=== PATIENT | female | born 2000 | race Caucasian/White ===

== ENCOUNTER 2020-04-18 09:45 | Inpatient (IN) ==
[2020-04-18] MEDS ORDERED: GI COCKTAIL ED USE PO ONE (11:35)
[2020-04-18] MEDS ORDERED: ONDANSETRON INJ 2 MG/ML 2 ML VIAL IV STA (11:35)
[2020-04-18] MEDS ORDERED: SODIUM CHLORIDE 0.9% 1000ML 1,000 ML IV ONE ×2 (11:35→12:44)
--- NOTE | 2020-04-18 11:41 | Emergency Department Note ---
History of Present Illness General Chief complaint: Illness Stated complaint: NAUSEA,FEVER,SHAKES;JUST NOT FEELING SELF Source: patient Mode of arrival: ambulatory Limitations: no limitations History of Present Illness Provider complaint: "I'm feeling really bad" Onset (ago): day(s) 4 Maximum Pain Intensity: 5 This 20-year-old female patient with significant past medical history of type 1 diabetes presents to the emergency department today, ambulatory, complaining of "I am feeling really bad". The patient states 4 days ago, she was hung over from drinking the night before. She states she then developed some heartburn and nausea, and yesterday she was extremely fatigued and nauseated. She has not been able to vomit. Today, she awoke with a headache noted her blood sugar was 586 upon awakening. The patient does admit that she did not take her normal 40 units of Lantus last night at bedtime. She has been unable to eat or drink normally. She did take 15 units of Humalog this morning upon awakening and noticing her sugar to be 586. Patient denies any further alcohol or drug use. She denies any specific abdominal pain. Last menstrual period is current. Last bowel movement was this morning. Patient denies any chest pain or dyspnea. There is no cough, congestion, runny nose, sore throat. Patient rates her discomfort a 5/10 and describes a burning sensation in her upper abdomen. Home Medications Home Medications Medication Instructions Recorded Confirmed Type Control 1 tab PO DAILY 04/18/20 04/18/20 History insulin lispro [Humalog KwikPen 20 unit SUBCUT DAILY 04/18/20 04/18/20 History Insulin] simvastatin 20 mg PO DAILY 04/18/20 04/18/20 History Allergies Allergy/AdvReac Type Severity Reaction Status Date / Time No Known Allergies Allergy Verified 04/18/20 11:11 Past Med/Surg History Medical History Diabetes, type I Hyperlipidemia Social History Feels Safe at Home: Yes Smoking Status: Never smoker Review of Systems A total of 10 systems reviewed and were otherwise negative Physical Exam Vital Signs Vital Signs - 24 hr 04/18/20 09:59 04/18/20 12:00 04/18/20 12:30 Temperature 36.6 C Temperature Source Oral Pulse Rate 120 H 93 H Pulse Rate [Finger] 91 H Pulse Rate from SpO2 Sensor 96 H Respiratory Rate 16 20 26 H Respiratory Effort / Characteristics Non-Labored Non-Labored Spontaneous Respiratory Depth Normal Normal Respiratory Pattern Blood Pressure 151/87 H 109/74 Blood Pressure [Right Arm] 111/78 Blood Pressure Mean 108 80 Blood Pressure Mean [Right Arm] 89 Pulse Oximetry 97 98 100 Oxygen Delivery Method Room Air Room Air Room Air Sepsis Recent Fever Within 48 Hours No Sepsis New/Unexplained Change in Mental Status No Sepsis Action Taken by Nursing No Action Required 04/18/20 12:38 04/18/20 12:40 04/18/20 12:50 Temperature Temperature Source Pulse Rate 96 H 100 H Pulse Rate [Finger] 96 H Pulse Rate from SpO2 Sensor 96 H 100 H Respiratory Rate 27 H 19 24 Respiratory Effort / Characteristics Non-Labored Spontaneous Respiratory Depth Normal Respiratory Pattern Regular Blood Pressure Blood Pressure [Right Arm] 109/74 Blood Pressure Mean Blood Pressure Mean [Right Arm] 85 Pulse Oximetry 100 100 100 Oxygen Delivery Method Room Air Room Air Room Air Sepsis Recent Fever Within 48 Hours Sepsis New/Unexplained Change in Mental Status Sepsis Action Taken by Nursing 04/18/20 13:00 04/18/20 13:01 04/18/20 13:10 Temperature Temperature Source Pulse Rate 96 H 95 H 98 H Pulse Rate [Finger] Pulse Rate from SpO2 Sensor 98 H 96 H 100 H Respiratory Rate 26 H 24 24 Respiratory Effort / Characteristics Respiratory Depth Respiratory Pattern Blood Pressure 111/72 Blood Pressure [Right Arm] Blood Pressure Mean 79 Blood Pressure Mean [Right Arm] Pulse Oximetry 100 100 100 Oxygen Delivery Method Room Air Room Air Room Air Sepsis Recent Fever Within 48 Hours Sepsis New/Unexplained Change in Mental Status Sepsis Action Taken by Nursing 04/18/20 13:20 04/18/20 13:30 04/18/20 13:31 Temperature Temperature Source Pulse Rate 96 H 96 H 93 H Pulse Rate [Finger] Pulse Rate from SpO2 Sensor 97 H 95 H 96 H Respiratory Rate 26 H 23 20 Respiratory Effort / Characteristics Respiratory Depth Respiratory Pattern Blood Pressure 112/68 Blood Pressure [Right Arm] Blood Pressure Mean 79 Blood Pressure Mean [Right Arm] Pulse Oximetry 100 100 100 Oxygen Delivery Method Room Air Room Air Room Air Sepsis Recent Fever Within 48 Hours Sepsis New/Unexplained Change in Mental Status Sepsis Action Taken by Nursing 04/18/20 13:40 04/18/20 13:50 04/18/20 14:00 Temperature Temperature Source Pulse Rate 100 H 96 H 94 H Pulse Rate [Finger] Pulse Rate from SpO2 Sensor 99 H Respiratory Rate 29 H 17 20 Respiratory Effort / Characteristics Respiratory Depth Respiratory Pattern Blood Pressure 119/84 Blood Pressure [Right Arm] Blood Pressure Mean 99 Blood Pressure Mean [Right Arm] Pulse Oximetry 100 Oxygen Delivery Method Room Air Room Air Room Air Sepsis Recent Fever Within 48 Hours Sepsis New/Unexplained Change in Mental Status Sepsis Action Taken by Nursing 04/18/20 14:01 04/18/20 14:10 04/18/20 14:20 Temperature Temperature Source Pulse Rate 92 H 96 H 94 H Pulse Rate [Finger] Pulse Rate from SpO2 Sensor Respiratory Rate 17 27 H 26 H Respiratory Effort / Characteristics Respiratory Depth Respiratory Pattern Blood Pressure Blood Pressure [Right Arm] Blood Pressure Mean Blood Pressure Mean [Right Arm] Pulse Oximetry Oxygen Delivery Method Room Air Room Air Room Air Sepsis Recent Fever Within 48 Hours Sepsis New/Unexplained Change in Mental Status Sepsis Action Taken by Nursing 04/18/20 14:30 04/18/20 14:31 04/18/20 14:40 Temperature Temperature Source Pulse Rate 99 H 96 H 95 H Pulse Rate [Finger] 93 H Pulse Rate from SpO2 Sensor Respiratory Rate 23 20 24 Respiratory Effort / Characteristics Non-Labored Spontaneous Respiratory Depth Normal Respiratory Pattern Regular Blood Pressure 117/82 Blood Pressure [Right Arm] 117/82 Blood Pressure Mean 89 Blood Pressure Mean [Right Arm] 93 Pulse Oximetry 99 Oxygen Delivery Method Room Air Room Air Room Air Sepsis Recent Fever Within 48 Hours Sepsis New/Unexplained Change in Mental Status Sepsis Action Taken by Nursing 04/18/20 14:50 04/18/20 15:00 04/18/20 15:01 Temperature Temperature Source Pulse Rate 96 H 100 H 100 H Pulse Rate [Finger] Pulse Rate from SpO2 Sensor Respiratory Rate 15 30 H 22 Respiratory Effort / Characteristics Respiratory Depth Respiratory Pattern Blood Pressure 108/68 Blood Pressure [Right Arm] Blood Pressure Mean 79 Blood Pressure Mean [Right Arm] Pulse Oximetry Oxygen Delivery Method Room Air Room Air Room Air Sepsis Recent Fever Within 48 Hours Sepsis New/Unexplained Change in Mental Status Sepsis Action Taken by Nursing 04/18/20 15:10 Temperature Temperature Source Pulse Rate 101 H Pulse Rate [Finger] Pulse Rate from SpO2 Sensor Respiratory Rate 26 H Respiratory Effort / Characteristics Respiratory Depth Respiratory Pattern Blood Pressure Blood Pressure [Right Arm] Blood Pressure Mean Blood Pressure Mean [Right Arm] Pulse Oximetry Oxygen Delivery Method Room Air Sepsis Recent Fever Within 48 Hours Sepsis New/Unexplained Change in Mental Status Sepsis Action Taken by Nursing VITALS: Vitals are noted on the nurse's note and reviewed by myself. Vital signs stable. GENERAL: This is a 20-year-old female, in no acute distress, nondiaphoretic, well-developed well-nourished. SKIN: The skin was without rashes, erythema, edema, or bruising. There is no tenting of the skin. Capillary refill less than 2 seconds. HEAD: Normocephalic atraumatic. EARS: External auditory canals clear, tympanic membranes pearly collier without erythema or effusion bilaterally. EYES: Pupils equal round and reactive to light and accommodation. Conjunctivae without injection, sclerae without icterus. NOSE: Patent, turbinates without inflammation or discharge. No sinus tenderness. MOUTH: Mucous membranes moist. Tonsils are not enlarged. Pharynx without erythema or exudate. Uvula midline. Airway patent. Tongue does not deviate. NECK: Supple without nuchal rigidity. No lymphadenopathy. No thyromegaly. Cervical spine is nontender. No JVD. HEART: Regular rate and rhythm without murmurs gallops or rubs. LUNGS: Clear to auscultation bilaterally without wheezes, rales or rhonchi. No retractions or accessory muscle use. ABDOMEN: Positive bowel sounds x 4. Normal tympanic percussion. Soft, nontende r, without masses or organomegaly. Marinelli sign negative. No guarding or rebound tenderness. No CVA tenderness bilaterally. MUSCULOSKELETAL: No muscle atrophy, erythema, or edema noted. Full range of motion without joint tenderness in all extremities. No tenderness to palpation. Normal gait. Strength 5/5 throughout. NEURO: Patient was alert and oriented to person place and time. No focal ne urological deficits. Course Course The patient was seen and evaluated as above. An order was placed for continuous cardiac monitoring. The monitor shows a sinus tachycardia at a rate of 120 bpm. IV access obtained, labs drawn. Patient medicated with IV fluids, Zofran, GI cocktail. Labs reviewed by myself. I discussed the findings with the patient at bedside. I discussed the case with my attending. I discussed case with the ED pharmacist. Patient medicated with second liter of IV fluids, cefepime, maintenance fluids of D5 and 1/2 NS with 20 mEq of potassium and insulin drip. I discussed the case with the global program manager. I discussed the case with the [facility] hospitalist physician, Dr. Delaney, who did agree to see and evaluate the patient for admission. Administered Medications Potassium Chloride/Dextrose/Sod Cl (D5w And 1/2nss + 20meq Kcl) 20 meq in 1,000 mls @ 125 mls/hr IV .Q8H ANAID Stop: 05/18/20 13:14 Last Admin: 04/18/20 14:39 Dose: 125 mls/hr Documented by: [id number] Discontinued Medications Al Hydrox/Mg Hydrox/Simethicone () 1 dose PO ONE ONE Stop: 04/18/20 11:36 Last Admin: 04/18/20 12:39 Dose: 1 dose Documented by: [id number] Sodium Chloride (Nss 1000ml) 1,000 mls @ 999 mls/hr IV .Q1H1M ONE Stop: 04/18/20 12:35 Last Infusion: 04/18/20 13:01 Dose: 0 mls/hr Documented by: [id number] Admin: 04/18/20 12:00 Dose: 999 mls/hr Documented by: [id number] Cefepime HCl (Maxipime) 2,000 mg in 20 mls @ 5 mls/min IV NOW STA; Protocol Stop: 04/18/20 12:46 Last Admin: 04/18/20 12:59 Dose: 5 mls/min Documented by: [id number] Sodium Chloride (Nss 1000ml) 1,000 mls @ 999 mls/hr IV .Q1H1M ONE Stop: 04/18/20 13:44 Last Infusion: 04/18/20 14:08 Dose: 0 mls/hr Documented by: [id number] Admin: 04/18/20 12:59 Dose: 999 mls/hr Documented by: [id number] Ondansetron HCl (Zofran) 4 mg IV NOW STA Stop: 04/18/20 11:36 Last Admin: 04/18/20 12:39 Dose: 4 mg Documented by: [id number] Medical Decision Making Differential Diagnosis DKA, HHS, sepsis, pancreatitis, infection, malignancy, among others Home Medications Current Medication List: was personally reviewed by me Laboratory Data Attestation: I reviewed the patient's lab results. No leukocytosis, anemia, thrombocytopenia. Renal and hepatic function without significant abnormality. Glucose 178 at present. Hemoglobin A1c elevated 9.1. Lactic acid 5.3. Urinalysis positive for 4+ ketones, 3+ glucose. No evidence of infection. Urine test negative. Repeat lactate 1.1. Anion gap 17. Result diagrams: 04/18/20 11:46 04/18/20 11:46 Lab Results 04/18/20 04/18/20 04/18/20 Range/Units 11:46 11:46 11:46 WBC 9.66 (4.8-10.8) K/uL RBC 4.86 (4.2-5.4) M/uL Hgb 15.3 (12.0-16.0) g/dL Hct 44.8 (37-47) % MCV 92.2 (80-100) fL MCH 31.5 (25-34) pg MCHC 34.2 (32-36) g/dL RDW Std Deviation 45.0 (36.4-46.3) fL RDW Coeff of Doreen 13.4 (11.5-14.5) % Plt Count 509 H (130-400) K/uL MPV 9.6 (7.4-10.4) fL Immature Gran % (Auto) 0.3 % Neut % (Auto) 77.1 % Lymph % (Auto) 18.3 % [place] % (Auto) 3.7 % Eos % (Auto) 0.4 % Baso % (Auto) 0.2 % Neut # (Auto) 7.44 H (1.4-6.5) K/uL Lymph # (Auto) 1.77 (1.2-3.4) K/uL [place] # (Auto) 0.36 (0.11-0.59) K/uL Eos # (Auto) 0.04 (0-0.5) K/uL Baso # (Auto) 0.02 (0-0.2) K/uL Immature Gran # (Auto) 0.03 H (0.00-0.02) K/uL ABG pH (7.35-7.45) ABG pCO2 (35-46) mmHg ABG pO2 (80-95) mmHg ABG HCO3 (19-24) mmol/L ABG O2 Saturation (90-95) % ABG Base Excess (-9-1.8) mEq/L Jc Test (Pos) Barometric Pressure mm/Hg Oxygen Given Sodium 136 (136-145) mmol/L Potassium 3.5 (3.5-5.1) mmol/L Chloride 106 (98-107) mmol/L Carbon Dioxide 13 L (21-32) mmol/L Anion Gap 17.0 H (3-11) BUN 6 L (7-18) mg/dl Creatinine 1.19 (0.6-1.2) mg/dl Est Cr Clr Drug Dosing 69.1 ml/min Est GFR ( Amer) 75.0 Est GFR (Non-Af Amer) 64.8 BUN/Creatinine Ratio 5.3 L (10-20) Glucose 178 H (70-99) mg/dl POC Glucose (70-99) mg/dl Estimat Average Glucose 214 mg/dl Hemoglobin A1c 9.1 H (4.5-5.6) % Lactate (0.4-2.0) mmol/L Calcium 10.9 H (8.5-10.1) mg/dl Phosphorus 1.5 L* (2.5-4.9) mg/dl Magnesium 1.7 L (1.8-2.4) mg/dl Total Bilirubin 0.6 (0.2-1) mg/dl AST 21 (15-37) U/L ALT 28 (12-78) U/L Alkaline Phosphatase 206 H (45-117) U/L Total Protein 9.1 H (6.4-8.2) gm/dl Albumin 3.8 (3.4-5.0) gm/dl Globulin 5.3 H (2.5-4.0) gm/dl Albumin/Globulin Ratio 0.7 L (0.9-2) Beta-Hydroxybutyric Acd 30.96 H (0.2-2.81) mg/dl Urine Color Urine Appearance (Clear) Urine pH (4.5-7.5) Ur Specific [place] (1.000-1.030) Urine Protein (Negative) Urine Glucose (UA) (Negative) Urine Ketones (Negative) Urine Blood (Negative) Urine Nitrite (Negative) Urine Bilirubin (Negative) Urine Urobilinogen (Negative) Ur Leukocyte Esterase (Negative) Urine WBC (Auto) (0-5) /hpf Urine RBC (Auto) (0-4) /hpf U Hyaline Cast (Auto) (0-5) /lpf U Epithel Cells (Auto) (0-5) /lpf Urine Bacteria (Auto) (Negative) POC Ur Test (NEG) 04/18/20 04/18/20 04/18/20 Range/Units 11:46 12:30 12:30 WBC (4.8-10.8) K/uL RBC (4.2-5.4) M/uL Hgb (12.0-16.0) g/dL Hct (37-47) % MCV (80-100) fL MCH (25-34) pg MCHC (32-36) g/dL RDW Std Deviation (36.4-46.3) fL RDW Coeff of Doreen (11.5-14.5) % Plt Count (130-400) K/uL MPV (7.4-10.4) fL Immature Gran % (Auto) % Neut % (Auto) % Lymph % (Auto) % [place] % (Auto) % Eos % (Auto) % Baso % (Auto) % Neut # (Auto) (1.4-6.5) K/uL Lymph # (Auto) (1.2-3.4) K/uL [place] # (Auto) (0.11-0.59) K/uL Eos # (Auto) (0-0.5) K/uL Baso # (Auto) (0-0.2) K/uL Immature Gran # (Auto) (0.00-0.02) K/uL ABG pH (7.35-7.45) ABG pCO2 (35-46) mmHg ABG pO2 (80-95) mmHg ABG HCO3 (19-24) mmol/L ABG O2 Saturation (90-95) % ABG Base Excess (-9-1.8) mEq/L Jc Test (Pos) Barometric Pressure mm/Hg Oxygen Given Sodium (136-145) mmol/L Potassium (3.5-5.1) mmol/L Chloride (98-107) mmol/L Carbon Dioxide (21-32) mmol/L Anion Gap (3-11) BUN (7-18) mg/dl Creatinine (0.6-1.2) mg/dl Est Cr Clr Drug Dosing ml/min Est GFR ( Amer) Est GFR (Non-Af Amer) BUN/Creatinine Ratio (10-20) Glucose (70-99) mg/dl POC Glucose (70-99) mg/dl Estimat Average Glucose mg/dl Hemoglobin A1c (4.5-5.6) % Lactate 5.3 H* (0.4-2.0) mmol/L Calcium (8.5-10.1) mg/dl Phosphorus (2.5-4.9) mg/dl Magnesium (1.8-2.4) mg/dl Total Bilirubin (0.2-1) mg/dl AST (15-37) U/L ALT (12-78) U/L Alkaline Phosphatase (45-117) U/L Total Protein (6.4-8.2) gm/dl Albumin (3.4-5.0) gm/dl Globulin (2.5-4.0) gm/dl Albumin/Globulin Ratio (0.9-2) Beta-Hydroxybutyric Acd (0.2-2.81) mg/dl Urine Color Yellow Urine Appearance Clear (Clear) Urine pH 5.0 (4.5-7.5) Ur Specific [place] 1.027 (1.000-1.030) Urine Protein Trace H (Negative) Urine Glucose (UA) 3+ H (Negative) Urine Ketones 4+ H (Negative) Urine Blood Negative (Negative) Urine Nitrite Negative (Negative) Urine Bilirubin Negative (Negative) Urine Urobilinogen Negative (Negative) Ur Leukocyte Esterase Negative (Negative) Urine WBC (Auto) 1-5 (0-5) /hpf Urine RBC (Auto) 0-4 (0-4) /hpf U Hyaline Cast (Auto) 1-5 (0-5) /lpf U Epithel Cells (Auto) 5-10 H (0-5) /lpf Urine Bacteria (Auto) Negative (Negative) POC Ur Test NEG (NEG) 04/18/20 04/18/20 04/18/20 Range/Units 14:08 14:08 14:12 WBC (4.8-10.8) K/uL RBC (4.2-5.4) M/uL Hgb (12.0-16.0) g/dL Hct (37-47) % MCV (80-100) fL MCH (25-34) pg MCHC (32-36) g/dL RDW Std Deviation (36.4-46.3) fL RDW Coeff of Doreen (11.5-14.5) % Plt Count (130-400) K/uL MPV (7.4-10.4) fL Immature Gran % (Auto) % Neut % (Auto) % Lymph % (Auto) % [place] % (Auto) % Eos % (Auto) % Baso % (Auto) % Neut # (Auto) (1.4-6.5) K/uL Lymph # (Auto) (1.2-3.4) K/uL [place] # (Auto) (0.11-0.59) K/uL Eos # (Auto) (0-0.5) K/uL Baso # (Auto) (0-0.2) K/uL Immature Gran # (Auto) (0.00-0.02) K/uL ABG pH 7.38 (7.35-7.45) ABG pCO2 26 L (35-46) mmHg ABG pO2 126 H (80-95) mmHg ABG HCO3 15 L (19-24) mmol/L ABG O2 Saturation 98.7 H (90-95) % ABG Base Excess -8.4 (-9-1.8) mEq/L Jc Test Pos (Pos) Barometric Pressure 729.8 mm/Hg Oxygen Given Room Air Sodium (136-145) mmol/L Potassium (3.5-5.1) mmol/L Chloride (98-107) mmol/L Carbon Dioxide (21-32) mmol/L Anion Gap (3-11) BUN (7-18) mg/dl Creatinine (0.6-1.2) mg/dl Est Cr Clr Drug Dosing ml/min Est GFR ( Amer) Est GFR (Non-Af Amer) BUN/Creatinine Ratio (10-20) Glucose (70-99) mg/dl POC Glucose 81 (70-99) mg/dl Estimat Average Glucose mg/dl Hemoglobin A1c (4.5-5.6) % Lactate 1.1 (0.4-2.0) mmol/L Calcium (8.5-10.1) mg/dl Phosphorus (2.5-4.9) mg/dl Magnesium (1.8-2.4) mg/dl Total Bilirubin (0.2-1) mg/dl AST (15-37) U/L ALT (12-78) U/L Alkaline Phosphatase (45-117) U/L Total Protein (6.4-8.2) gm/dl Albumin (3.4-5.0) gm/dl Globulin (2.5-4.0) gm/dl Albumin/Globulin Ratio (0.9-2) Beta-Hydroxybutyric Acd (0.2-2.81) mg/dl Urine Color Urine Appearance (Clear) Urine pH (4.5-7.5) Ur Specific [place] (1.000-1.030) Urine Protein (Negative) Urine Glucose (UA) (Negative) Urine Ketones (Negative) Urine Blood (Negative) Urine Nitrite (Negative) Urine Bilirubin (Negative) Urine Urobilinogen (Negative) Ur Leukocyte Esterase (Negative) Urine WBC (Auto) (0-5) /hpf Urine RBC (Auto) (0-4) /hpf U Hyaline Cast (Auto) (0-5) /lpf U Epithel Cells (Auto) (0-5) /lpf Urine Bacteria (Auto) (Negative) POC Ur Test (NEG) Imaging Data Radiologist's Impression: XR chest 1V portable CLINICAL HISTORY: fever dyspnea COMPARISON STUDY: No previous studies for comparison. FINDINGS: The bones soft tissues and hemidiaphragms are normal. The cardiomediastinal silhouette is normal. The lungs are clear. The pulmonary vasculature is normal. IMPRESSION: Negative chest. ACT 112: Negative or not required by law. The above report was generated using voice recognition software. It may contain grammatical, syntax or spelling errors. Electronically signed by: Won Matthews M.D. 04/18/2020 1:06 PM Blood Pressure Blood Pressure Findings: Normal blood pressure MDM Narrative This 20-year-old female patient presents emergency department today for josephine luation of generalized feeling of unwellness. The patient is a type I diabetic who has not been properly managing her blood sugars. She has been ill for the past 3 to 4 days, complaining of heartburn and epigastric pain, nausea without vomiting, blood sugar this morning upon awakening was 586. The patient did give herself 15 units of Humalog prior to arrival in the emergency department. While here in the department, she was found to have a mildly elevated blood sugar of 178. I feel that the Humalog she was given prior to arrival in the ED helped to decrease the blood sugar prior to her arrival in the ED. The patient is likely experiencing an acute DKA with the elevated anion gap of 17, elevated blood sugar, tachycardia. Her symptoms here in the ED did significantly improve with IV hydration, Zofran, and GI cocktail. She was empirically started on cefepime due to the elevated lactic acid and blood cultures are pending. The patient will be admitted to the hospitalist service for ongoing management care of her condition. Please see hospitalist dictation. The chart was completed utilizing [employer] voice recognition software. Grammatical errors, random word insertions, pronoun errors, and incomplete sentences are an occasional consequence of this system due to software limitations, ambient noise, and hardware issues. Any formal questions or concerns about the content, text, or information contained within the body of this dictation should be directly addressed to the provider for clarification. Impression & Plan DKA (diabetic ketoacidoses), Tachycardia, Nausea Discharge Plan Visit Data Chief Complaint: Illness Stated Complaint: NAUSEA,FEVER,SHAKES;JUST NOT FEELING SELF ED Provider: Shabbir Conner ED Midlevel Provider: Lu Ashley Discharge Problem: DKA (diabetic ketoacidoses), Tachycardia, Nausea Patient Disposition: Admitted As Inpatient Condition: Good Forms Stand Alone Forms: My [facility] [employer] Prescriptions Prescriptions: No Action insulin lispro [Humalog KwikPen Insulin] 100 unit/mL Insulin Pen 20 unit SUBCUT DAILY RF: 0 Control 1 tab PO DAILY RF: 0 simvastatin 20 mg Tablet 20 mg PO DAILY RF: 0 Referrals Referrals: PCP,NO [Primary Care Provider] -
[2020-04-18 12:18] LABS: Basophils # (auto) 0.02 K/uL (0-0.2); Basophils % (auto) 0.2 %; Eosinophils # (auto) 0.04 K/uL (0-0.5); Eosinophils % (auto) 0.4 %; Hematocrit (blood only) 44.8 % (37-47); Hemoglobin 15.3 g/dL (12.0-16.0); Immature Granulocytes # (auto) 0.03 K/uL (0.00-0.02); Immature Granulocytes % (auto) 0.3 %; Lymphocytes # (auto) 1.77 K/uL (1.2-3.4); Lymphocytes % (auto) 18.3 %; Mean Corpuscular Hemoglobin 31.5 pg (25-34); Mean Corpuscular Hgb Conc 34.2 g/dL (32-36); Mean Corpuscular Volume 92.2 fL (80-100); Mean Platelet Volume 9.6 fL (7.4-10.4); Monocytes # (auto) 0.36 K/uL (0.11-0.59); Monocytes % (auto) 3.7 %; Neutrophils # (auto) 7.44 K/uL (1.4-6.5); Neutrophils % (auto) 77.1 %; Platelet Count 509 K/uL (130-400); RDW Coefficient of Variation 13.4 % (11.5-14.5); Red Blood Count 4.86 M/uL (4.2-5.4); White Blood Count 9.66 K/uL (4.8-10.8)
[2020-04-18 12:36] LABS: Albumin Level 3.8 gm/dl (3.4-5.0); BUN Creatinine Ratio 5.3 (10-20); Calcium 10.9 mg/dl (8.5-10.1); Creatinine Clr Calc Pharmacy 69.1 ml/min; Est GFR (Non-African American) 64.8; Magnesium 1.7 mg/dl (1.8-2.4); Potassium 3.5 mmol/L (3.5-5.1)
[2020-04-18] MEDS ORDERED: CEFEPIME 2,000 MG/20 ML VIAL IV STA (12:43)
[2020-04-18 12:51] LABS: Estimated Average Glucose 214 mg/dl; Hemoglobin A1C 9.1 % (4.5-5.6)
[2020-04-18 12:57] LABS: Albumin Globulin Ratio 0.7 (0.9-2); Beta-Hydroxybutyrate 30.96 mg/dl (0.2-2.81); Bilirubin,Total 0.6 mg/dl (0.2-1); Globulin 5.3 gm/dl (2.5-4.0); Phosphorus 1.5 mg/dl (2.5-4.9); Total Protein 9.1 gm/dl (6.4-8.2)
[2020-04-18 13:03] LABS: Appearance Urine Clear (Clear); Bacteria Urine Automated Negative (Negative); Bilirubin Urine Negative (Negative); Blood Urine Negative (Negative); Color Urine Yellow; Glucose Urine UA 3+ (Negative); Ketones Urine 4+ (Negative); Leukocyte Esterase Urine Negative (Negative); Nitrite Urine Negative (Negative); Protein Urine Trace (Negative); RBC Urine Automated 0-4 /hpf (0-4); Specific Gravity Urine 1.027 (1.000-1.030); Urobilinogen Urine Negative (Negative)
[2020-04-18] MEDS ORDERED: GLUCOSE 10 TABS/TUBE PO PRN (13:07)
[2020-04-18] MEDS ORDERED: GLUCOSE 40% GEL 15 GM TUBE PO PRN (13:07)
[2020-04-18] MEDS ORDERED: GLUCAGON FOR INJ 1 MG VIAL SQ PRN (13:07)
[2020-04-18] MEDS ORDERED: ED DKA INSULIN DRIP ONE (13:07)
[2020-04-18] MEDS ORDERED: CARBOHYDRATES FOR HYPOGLYCEMIA PO PRN (13:07)
[2020-04-18] MEDS ORDERED: DEXTROSE 50% 50 ML SYRINGE IV PRN (13:07)
--- NOTE | 2020-04-18 13:08 | XRay Report ---
XR chest 1V portable CLINICAL HISTORY: fever dyspnea COMPARISON STUDY: No previous studies for comparison. FINDINGS: The bones soft tissues and hemidiaphragms are normal. The cardiomediastinal silhouette is n ormal. The lungs are clear. The pulmonary vasculature is normal. IMPRESSION: Negative chest. ACT 112: Negative or not required by law. The above report was generated using voice recognition software. It may contain grammatical, syntax or spelling errors. Electronically signed by: Won Matthews M.D. 04/18/2020 1:06 PM
[2020-04-18] MEDS ORDERED: INSULIN REGULAR 250 UNITS in SODIUM CHLORIDE 0.9% 247.5 ML IV SCH ×2 (13:15→16:17)
--- NOTE | 2020-04-18 13:32 | History & Physical Report ---
Date of Service April 18, 2020 Assessment & Plan (1) DKA (diabetic ketoacidoses): Patient presents with diabetic ketoacidosis having reduce her glucose by self administration of short acting insulin prior to coming in. The patient does have an anion gap of 17 and a bicarb of 13 hypophosphatemia hypomagnesemia. She is elevated beta hydroxybutyric acid and also elevated lactic acid In the emergency department the treating provider did switch her to D5 with potassium which will be maintained upstairs she is on an insulin drip with glycemic management pharmacy consult. Typically she takes short acting insulin with a goal range of 90-1 30 with a correction factor of 30 and a carb ratio 1: 6. She typically takes 4 units of Lantus at night. Although being a type I diabetic for some time she states she does not recall being in DKA since age 9 she was informed that her hemoglobin A1c was elevated at 9.1 and she should consider reevaluation of her regiment hypomagnesemia this will be repleted We will follow her hypophosphatemia and replete if needed Patient is graduating senior from [employer] has a job interview on 04/19 by telephone interview at 1530 hrs. she is hopeful we can turn this around and will have the help of our glycemic pharmacist who I did call to see if we can resume her basal bolus in the morning if her anion gap and laboratory abnormalities are replete History of Present Illness Primary Care Provider: NO PCP This 20-year-old female patient with significant past medical history of type 1 diabetes presents in DKA but did self administer short acting insulin prior to arrival to bring her glucose down, she still has a depressed bicarb, widened anion gap and Beta hydroxy butarate that is elevated, . The patient states 4 days ago, she was drinking to the point where she did vomit and has felt poorly since that time. She attempted to self hydrate but did continue to feel fatigued and weak at times feeling short of breath and extreme fatigue. She states she then developed some heartburn and nausea, 1 day prior to presentation because of the nausea she did not take her long-acting insulin (40 units of Lantus at bedtime). Today, she awoke with a headache noted her blood sugar was 586 upon awakening. She did take 15 units of Humalog. The patient's sliding scale insulin is usually goal range of 90-1 30 correction factor 30 carb ratio 1:6. She denies any specific abdominal pain. Last menstrual period is current. Last bowel movement was this morning. Patient denies any chest pain or dyspnea. There is no cough, congestion, runny nose, sore throat. Patient had COVID screening questions and were negative. 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 Allergies Allergy/AdvReac Type Severity Reaction Status Date / Time No Known Allergies Allergy Verified 04/18/20 11:11 Home Medications Home Medications Medication Instructions Recorded Confirmed Type Control 1 tab PO DAILY 04/18/20 04/18/20 History insulin lispro [Humalog KwikPen 20 unit SUBCUT DAILY 04/18/20 04/18/20 History Insulin] simvastatin 20 mg PO DAILY 04/18/20 04/18/20 History Past Med/Surg History Medical History Diabetes, type I Hyperlipidemia Social History Feels Safe at Home: Yes Smoking Status: Never smoker Review of Systems Review of Systems: Mild to moderate distress and moderate fatigue no headache, blurry or double vision no speech or swallowing issues no chest pain, pressure or palpitations Mona complained of feeling shortness of breath but since resolved, no cough or wheezes no abdominal pain, did complain of having some mild nausea & vomiting, but no diarrhea or constipation no dysuria, hematuria or frequency no focal joint pain or swelling no back pain, CVA tenderness or radicular pain no bruising, bleeding or rashes no focal signs of weakness or numbness or altered sensation no complaints or anxiety or depression. Physical Exam Physical Exam: The patient appeared well nourished and normally developed. Vital signs as documented. Head exam is normocephalic atraumatic no scleral icterus Neck is without JVD, thyromegaly, or carotid bruits. Lungs are clear to auscultation, no focal loss of breath sounds Cardiac exam, Rhythm is regular.. No murmurs, rubs or gallops. Abdominal exam reveals normal bowel sounds, soft non tender, no masses Extremities are nonedematous and both pedal pulses are normal. Neurologic exam is alert and oriented, no focal loss of strength or sensation Skin is without bruises or rashes Psychologically is without concerns for anxiety or depression Results & Data Results & Data ([facility]) Vital Signs (Past 12 Hours) Vital Signs Temp Pulse Pulse Resp BP BP Pulse Ox 04/18/20 12:38 96 H 27 H 109/74 100 04/18/20 12:00 91 H 20 111/78 98 04/18/20 09:59 97.9 F 120 H 16 151/87 H 97 PG Care Time/CCT Total # of Minutes Spent Total Time Spent with Patient: Total time spent is greater than 50% in c oordination of care (as documented) at patient's floor/unit and/or counseling patient: Coding Level of Care Code 56897 Initial Inpt Care Lvl 3 Diagnoses DKA (diabetic ketoacidoses) E11.10
[2020-04-18 14:22] LABS: Base Excess ABG -8.4 mEq/L (-9-1.8); HCO3 ABG 15 mmol/L (19-24); Oxygen Saturation ABG 98.7 % (90-95); PCO2 ABG 26 mmHg (35-46); PO2 ABG 126 mmHg (80-95); pH ABG 7.38 (7.35-7.45)
[2020-04-18 14:33] LABS: Allen Test Pos (Pos)
[2020-04-18] MEDS: D5W AND 1/2NSS + 20MEQ KCL 20 MEQ/1,000 ML BAG IV SCH (14:39)
[2020-04-18] MEDS ORDERED: DC ALL PREVIOUSLY ORDERED DIABETES MEDS ONE (16:17)
[2020-04-18] MEDS ORDERED: ONDANSETRON INJ 2 MG/ML 2 ML VIAL IV PRN (16:17)
[2020-04-18] MEDS ORDERED: ACETAMINOPHEN 325 MG TAB PO PRN (16:17)
[2020-04-18] MEDS ORDERED: DKA GOAL RANGE 150-250 mg/dl ONE (16:17)
[2020-04-18] MEDS ORDERED: ALUMINUM/MAGNESIUM SUSP 30 ML UDC PO PRN (16:17)
[2020-04-18] MEDS ORDERED: PHARMACY GLYCEMIC MGMT CONSULT PRN (16:23)
[2020-04-18] MEDS ORDERED: MAGNESIUM SULFATE / D5W 1 GM/100 ML BAG IV ONE (17:00)
[2020-04-18 17:08] LABS: BUN Creatinine Ratio 7.4 (10-20); Calcium 8.6 mg/dl (8.5-10.1); Creatinine Clr Calc Pharmacy 123.9 ml/min; Est GFR (African American) 145.3; Est GFR (Non-African American) 125.4; Magnesium 1.6 mg/dl (1.8-2.4); Phosphorus 1.7 mg/dl (2.5-4.9); Potassium 3.3 mmol/L (3.5-5.1)
[2020-04-18] MEDS: INSULIN ASPART 100 UNITS/ML 3 ML PEN SC SCH ×2 (17:28→22:18)
[2020-04-18 20:33] LABS: BUN Creatinine Ratio 5.1 (10-20); Calcium 7.9 mg/dl (8.5-10.1); Creatinine Clr Calc Pharmacy 85.2 ml/min; Est GFR (African American) 97.3; Est GFR (Non-African American) 83.9; Magnesium 1.9 mg/dl (1.8-2.4); Phosphorus 1.9 mg/dl (2.5-4.9); Potassium 3.5 mmol/L (3.5-5.1)
[2020-04-19 00:47] LABS: BUN Creatinine Ratio 6.9 (10-20); Calcium 7.9 mg/dl (8.5-10.1); Creatinine Clr Calc Pharmacy 110.5 ml/min; Est GFR (African American) 133.3; Magnesium 1.8 mg/dl (1.8-2.4); Potassium 3.5 mmol/L (3.5-5.1)
[2020-04-19 00:59] LABS: Phosphorus 1.5 mg/dl (2.5-4.9)
[2020-04-19] MEDS: D5W AND 1/2NSS + 20MEQ KCL 20 MEQ/1,000 ML BAG IV SCH ×2 (01:21→09:00)
[2020-04-19 04:51] LABS: BUN Creatinine Ratio 6.3 (10-20); Calcium 7.6 mg/dl (8.5-10.1); Creatinine Clr Calc Pharmacy 113.5 ml/min; Est GFR (African American) 137.8; Est GFR (Non-African American) 118.9; Magnesium 1.8 mg/dl (1.8-2.4); Potassium 3.5 mmol/L (3.5-5.1)
[2020-04-19 05:00] LABS: Phosphorus 2.2 mg/dl (2.5-4.9)
[2020-04-19 09:00] LABS: BUN Creatinine Ratio 5.8 (10-20); Calcium 8.5 mg/dl (8.5-10.1); Creatinine Clr Calc Pharmacy 127.8 ml/min; Est GFR (African American) 146.8; Est GFR (Non-African American) 126.7; Magnesium 1.8 mg/dl (1.8-2.4); Potassium 3.3 mmol/L (3.5-5.1)
[2020-04-19] MEDS ORDERED: INSULIN GLARGINE SOLOSTAR 100 UNITS/ML 3 ML PEN SC ONE (09:00)
[2020-04-19] MEDS: INSULIN ASPART 100 UNITS/ML 3 ML PEN SC SCH ×4 (09:01→20:49)
[2020-04-19] MEDS: SIMVASTATIN 20 MG TAB PO SCH (09:03)
[2020-04-19] MEDS: POT PHOSPHATE MONOBASIC W/ SOD TAB PO SCH ×4 (09:10→20:44)
[2020-04-19 09:11] LABS: Phosphorus 2.1 mg/dl (2.5-4.9); Thyroid Stimulating Hormone 1.48 uIu/ml (0.300-4.500)
[2020-04-19 13:01] LABS: BUN Creatinine Ratio 6.9 (10-20); Blood Urea Nitrogen 4 mg/dl (7-18); Calcium 8.3 mg/dl (8.5-10.1); Carbon Dioxide 22 mmol/L (21-32); Chloride 113 mmol/L (98-107); Creatinine Clr Calc Pharmacy 151.5 ml/min; Est GFR (African American) > 150.0; Est GFR (Non-African American) 133.9; Glucose 97 mg/dl (70-99); Magnesium 1.9 mg/dl (1.8-2.4); Phosphorus 1.9 mg/dl (2.5-4.9); Potassium 3.4 mmol/L (3.5-5.1); Sodium 143 mmol/L (136-145)
--- NOTE | 2020-04-19 14:50 | Pharmacy Report ---
Glycemic Control Consultation - Date of Service April 19, 2020 - Scope Scope: Glycemic Pharmacist consulted for glycemic control and to write orders per [facility] inpatient glycemic control protocol. - Objective Weight: 68.2 kg Accuchecks BSG (last 24hrs): 04/18/20 04/18/20 04/18/20 16:26 16:42 17:34 Glucose 75 POC Glucose 71 190 H 04/18/20 04/18/20 04/18/20 19:00 20:01 20:02 Glucose 186 H POC Glucose 253 H 192 H 04/18/20 04/18/20 04/18/20 21:02 21:58 23:06 Glucose POC Glucose 179 H 198 H 152 H 04/18/20 04/19/20 04/19/20 23:57 00:18 01:03 Glucose 209 H POC Glucose 179 H 194 H 04/19/20 04/19/20 04/19/20 02:58 04:21 05:04 Glucose 158 H POC Glucose 171 H 153 H 04/19/20 04/19/20 04/19/20 07:07 08:10 11:28 Glucose 168 H POC Glucose 164 H 72 04/19/20 12:24 Glucose 97 POC Glucose Laboratory Data (last 24hrs): 04/18/20 04/18/20 04/19/20 16:26 20:02 00:18 Potassium 3.3 L 3.5 3.5 Carbon Dioxide 16 L 16 L 21 Anion Gap 13.0 H 13.0 H 7.0 Creatinine 0.66 D 0.96 D 0.74 Est Cr Clr Drug Dosing 123.9 85.2 110.5 04/19/20 04/19/20 04/19/20 04:21 08:10 12:24 Potassium 3.5 3.3 L 3.4 L Carbon Dioxide 21 19 L 22 Anion Gap 6.0 9.0 8.0 Creatinine 0.72 0.64 0.54 L Est Cr Clr Drug Dosing 113.5 127.8 151.5 HbA1c: Hemoglobin A1c 9.1 % (4.5-5.6) H 04/18/20 11:46 - Recent Pertinent Medications Outpatient Anti-diabetic Regimen: * Lantus 40 units hs, novolog ssi 90-130 CF of 30 CR of 1:6 * A1c = 9.1 % 04/18/20 Risk Factors for Insulin Resistance: * Diet: yes - Assessment & Plan Assessment & Plan: ASSESSMENT: * Patient admitted with DKA and started on insulin drip on admission. Continues on insulin drip this AM - running at 1.3 units/hr * Patient had forgotten to take evening dose of basal insulin 04/17 pm and BSGs yesterday AM were in the 500s * AM labs w/in range - anion gap closed / plan to transition off insulin drip - ordered home basal insulin for this AM * Insulin drip dc'ed later this AM - started novolog ssi PLAN FOR INPATIENT GLYCEMIC CONTROL: * Basal insulin * Lantus 40 x 1 this morning * Bolus insulin * NovoLog per scale ACHS or Q6hrs while NPO * Goal Range: Low 110 mg/dL - High 140 mg/dL * Correction Factor: 30 mg/dL/unit * Nutritional / Prandial insulin per carb ratio of 1 unit per 9 grams CHO consumed * Please note that the plan above was derived based on current level of insulin resistance and hospital stress. These recommendations are appropriate for inpatient admission only. Plan of care upon discharge will need to be reassessed to avoid potential outpatient hypo/hyperglycemia. Thank you.
[2020-04-19] MEDS ORDERED: POTASSIUM CHLORIDE 20 MEQ TABCR PO ONE (17:15)
--- NOTE | 2020-04-19 21:10 | Hospitalist Progress Note ---
Date of Service April 19, 2020 Assessment & Plan (1) DKA (diabetic ketoacidoses): DKA resolved; gap closed; GI symptoms resolved; BSGs markedly improved. Transitioning off insulin infusion back to SC regimen of lantus/novolog. Appreciate pharmacy glycemic consult & management. HbA1C 9.1% -- DM educator has seen. Should get established with local salvage winder if she stays in [place] longer term; o/w back in [place]. Can stop serial labs. Can stop IV fluids. Repeat BMP in am. 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 (6) DVT prophylaxis: ambulating. d/c home first thing in am; defer on chemical means for now. d/c tele - transfer to med/surg. Admission and Anticipated Discharge Date Admission Date: April 18, 2020 Subjective patient feeling well; back to normal. no nausea/emesis/abd pain. had had dyspnea at home prior to admission - resolved. felt "terrible" for 2 days earlier this week (after a night-out on the town with friends at local bars) - thought it was a hang-over from drinking. that's when sugars began to rise. didn't have fever but felt warm. no travel since early December. 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 follows with endocrinology back home in [facility]. tele overnight wnl. Review of Systems Constitutional: no fever, no chills and no anorexia Ear, Nose, Mouth, Throat: no loss of taste/smell Respiratory: no cough and no dyspnea Cardiovascular: no chest pain Gastrointestinal: no abdominal pain, no nausea, no vomiting and no diarrhea/loose stools Physical Exam Constitutional: well developed and well nourished; no acute distress and no altered mental status ENMT: external ear and nose normal, oropharynx normal Respiratory: normal respiratory effort, lungs clear to auscultation Cardiovascular: Rate/Rhythm: regular rate and regular rhythm Heart Sounds: normal S1 and normal S2; no murmur Vessels: posterior tibial pulses present and dorsalis pedis pulses present Extremities: no edema Gastrointestinal (Abdomen): normal bowel sounds, soft, nontender, no hepatosplenomegaly Skin: no rashes, warm and dry Psychiatric: A+Ox3, euthymic affect Results & Data Results & Data ([facility]) Vital Signs (Past 12 Hours) Vital Signs Temp Pulse Resp BP BP Pulse Ox 04/19/20 15:44 36.8 C 93 H 19 111/72 100 04/19/20 11:47 36.5 C 76 18 131/68 99 Laboratory Results Laboratory Results - last 24 hr 04/18/20 04/18/20 04/18/20 21:58 23:06 23:57 VBG pH Sodium Potassium Chloride Carbon Dioxide Anion Gap BUN Creatinine Est Cr Clr Drug Dosing Est GFR ( Amer) Est GFR (Non-Af Amer) BUN/Creatinine Ratio Glucose POC Glucose 198 H 152 H 179 H Calcium Phosphorus Magnesium [facility] 04/19/20 04/19/20 04/19/20 00:18 00:19 01:03 VBG pH 7.39 Sodium 139 Potassium 3.5 Chloride 111 H Carbon Dioxide 21 Anion Gap 7.0 BUN 5 L Creatinine 0.74 Est Cr Clr Drug Dosing 110.5 Est GFR ( Amer) 133.3 Est GFR (Non-Af Amer) 115.0 BUN/Creatinine Ratio 6.9 L Glucose 209 H POC Glucose 194 H Calcium 7.9 L Phosphorus 1.5 L* Magnesium 1.8 TSH 04/19/20 04/19/20 04/19/20 02:58 04:21 04:21 VBG pH 7.34 L Sodium 142 Potassium 3.5 Chloride 115 H Carbon Dioxide 21 Anion Gap 6.0 BUN 5 L Creatinine 0.72 Est Cr Clr Drug Dosing 113.5 Est GFR ( Amer) 137.8 Est GFR (Non-Af Amer) 118.9 BUN/Creatinine Ratio 6.3 L Glucose 158 H POC Glucose 171 H Calcium 7.6 L Phosphorus 2.2 L Magnesium 1.8 TSH 04/19/20 04/19/20 04/19/20 05:04 07:07 08:10 VBG pH Sodium 140 Potassium 3.3 L Chloride 112 H Carbon Dioxide 19 L Anion Gap 9.0 BUN 4 L Creatinine 0.64 Est Cr Clr Drug Dosing 127.8 Est GFR ( Amer) 146.8 Est GFR (Non-Af Amer) 126.7 BUN/Creatinine Ratio 5.8 L Glucose 168 H POC Glucose 153 H 164 H Calcium 8.5 Phosphorus 2.1 L Magnesium 1.8 TSH 1.480 04/19/20 04/19/20 04/19/20 08:10 11:28 12:24 VBG pH 7.37 Sodium 143 Potassium 3.4 L Chloride 113 H Carbon Dioxide 22 Anion Gap 8.0 BUN 4 L Creatinine 0.54 L Est Cr Clr Drug Dosing 151.5 Est GFR ( Amer) > 150.0 Est GFR (Non-Af Amer) 133.9 BUN/Creatinine Ratio 6.9 L Glucose 97 POC Glucose 72 Calcium 8.3 L Phosphorus 1.9 L Magnesium 1.9 TSH 04/19/20 04/19/20 04/19/20 12:24 16:38 20:41 VBG pH 7.40 Sodium Potassium Chloride Carbon Dioxide Anion Gap BUN Creatinine Est Cr Clr Drug Dosing Est GFR ( Amer) Est GFR (Non-Af Amer) BUN/Creatinine Ratio Glucose POC Glucose 181 H 203 H Calcium Phosphorus Magnesium TSH PG Care Time/CCT Total # of Minutes Spent Total Time Spent with Patient: Total time spent is greater than 50% in coordination of care (as documented) at patient's floor/unit and/or counseling patient: Coding Level of Care Code 73385 Subseq Hosp Care Lvl 2 Diagnoses DKA (diabetic ketoacidoses) E10.10 Diabetes mellitus complication detail: without coma Diabetes mellitus type: type 1 Hyperlipidemia E78.2 Hyperlipidemia type: mixed hyperlipidemia Hypokalemia E87.6 Hypophosphatemia E83.39 Subjective fever R50.9 DVT prophylaxis Z29.9 (1) DKA (diabetic ketoacidoses) Diabetes mellitus complication detail: without coma Diabetes mellitus type: type 1 Qualified Code(s): E10.10 - Type 1 diabetes mellitus with ketoacidosis without coma (2) Hyperlipidemia Hyperlipidemia type: mixed hyperlipidemia Qualified Code(s): E78.2 - Mixed hyperlipidemia
[2020-04-20 08:29] LABS: BUN Creatinine Ratio 12.8 (10-20); Blood Urea Nitrogen 6 mg/dl (7-18); Calcium 8.3 mg/dl (8.5-10.1); Carbon Dioxide 25 mmol/L (21-32); Chloride 111 mmol/L (98-107); Creatinine Clr Calc Pharmacy 170.4 ml/min; Est GFR (African American) > 150.0; Est GFR (Non-African American) 139.2; Glucose 183 mg/dl (70-99); Potassium 3.7 mmol/L (3.5-5.1); Sodium 142 mmol/L (136-145)
--- NOTE | 2020-04-20 09:07 | Discharge Summary ---
Date of Service date of admission - April 18, 2020 date of discharge - April 20, 2020 Admission HPI Per Admitting Provider This 20-year-old female patient with significant past medical history of type 1 diabetes presents in DKA but did self administer short acting insulin prior to arrival to bring her glucose down, she still has a depressed bicarb, widened anion gap and Beta hydroxy butarate that is elevated. The patient states 4 days ago she drank alcohol heavily with her friends to the point where she did vomit and has felt poorly since that time. She attempted to self hydrate but did continue to feel fatigued and weak at times as well as short of breath. She states she then developed some heartburn and nausea. 1 day prior to presentation because of the nausea she did not take her long-acting insulin (40 units of Lantus at bedtime). Today, she awoke with a headache noted her blood sugar was 586 upon awakening. She did take 15 units of Humalog. The patient's sliding scale insulin is usually goal range of 90-130, correction factor 30, carb ratio 1:6. She denies any specific abdominal pain. Last menstrual period is current. Last bowel movement was this morning. Patient denies any chest pain or dyspnea. There is no cough, congestion, runny nose, sore throat. Susan kruse had COVID screening questions and were negative. She is a graduating senior at [employer]. Principal Diagnosis DKA with baseline uncontrolled type 1 DM Discharge Exam Constitutional well developed and well nourished; no acute distress and no altered mental status ENMT external ear and nose normal, oropharynx normal Mouth: no oral mucosal abnormality (no thrush plaques) Respiratory normal respiratory effort, lungs clear to auscultation Cardiovascular Rate/Rhythm: regular rate and regular rhythm Heart Sounds: normal S1 and normal S2; no murmur Vessels: posterior tibial pulses present and dorsalis pedis pulses present Extremities: no edema Gastrointestinal (Abdomen) normal bowel sounds, soft, nontender, no hepatosplenomegaly Skin no rashes, warm and dry Psychiatric A+Ox3, euthymic affect Discharge Data Allergies Allergy/AdvReac Type Severity Reaction Status Date / Time No Known Allergies Allergy Verified 04/18/20 11:11 Consultations pharmacy glycemic consult sports equipment racker Hospital Course (1) DKA (diabetic ketoacidoses): Patient presented in mild DKA. This was likely due to recent heavy alcohol use and noncompliance with insulin regimen. No obvious infectious cause was found (no UTI, no pneumonia, no obvious COVID symptoms). She was treated in the customary fashion with IV fluids, IV insulin, and supportive care. Electrolytes were replaced as needed. Anion gap closed with the above measures, BSGs markedly improved, and diet was resumed. She was ultimately transitioned from insulin infusion to a subcu regimen of lantus/novolog. The pharmacy glycemic team provided whittaker recommendations for her diabetes care. She was also seen by the sports equipment racker. Her control was satisfactory on lantus 40 units daily and novolog with correction of 30 and carb ratio of 1:9. At discharge, we recommended the following - * ongoing lantus 40 units HS * humalog or novolog - correction factor of 25; carb ratio 1:6; correction factor may need further adjustments * close attention to diet, alcohol moderation, and compliance with insulin regimen f/u [facility] as scheduled and endocrinology in [place], [place] COVID-19 precautions extensively discussed; counseled her that she is at great risk of more serious disease because of T1DM status (2) Uncontrolled type 1 diabetes mellitus: HbA1C 9.1%. 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 Patient plans to stay in [place] during the summer - thus, follow- up appointment given for [facility] endocrinology post-d/c. (3) Hyperlipidemia: Cont statin (4) Hypophosphatemia: replace w/ Kphos neutral x 3 days post-d/c (5) Hypokalemia: replaced and normal level at discharge (6) Subjective fever: Patient's presenting symptoms were likely due to the DKA itself. However, she felt somewhat feverish and quite poor in the days following the evening when she drank alcohol with friends. 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 This was pending at time of discharge. Total Time Total Time Spent Total Time Spent (In Minutes): 35 Total Time Includes: Examination of the Patient, Discharge Planning and Medication Reconciliation Discharge Plan Discharge Items Patient Disposition: Home - Self-Care Reason For Visit: DIABETIC KETOACIDOSIS Discharge Diagnosis: DKA (diabetic ketoacidosis) - resolved uncontrolled type 1 diabetes Condition on Discharge: Good Activity: Resume your previous activity Non-emergency contact: Specialist Call non-emergency contact if: you have any medication questions, your symptoms worsen and you have a fever Follow-up/Referrals: Katie Amador CRNP, CDE [Nurse Practitioner] - 05/31/20 8:00 am (see Julieth Amador or any CDE at endocrinology office within 1-2 weeks; this will be a new patient visit; dx- T1DM, DKA EARLIEST APPT AVAILABLE WITH GROUP-WILL SEE MALA DELGADO. OFFICE WILL CALL PATIENT IF AN EARLIER APPT CAN BE MADE. ) Diet: Carb Count or DM1 Addtl Attending Provider Instructions: You were admitted for DKA (diabetic ketoacidosis) requiring IV fluids, IV insulin, and supportive care. We did not find any obvious infections that caused the DKA. Your blood sugars improved with the above, and your nausea and other symptoms resolved. Your hemoglobin a1c was 9.1%. Recommendations - 1. Lantus - * you received 20 units this morning before discharge * take 20 units at bedtime TONIGHT * then resume 40 units at bedtime TOMORROW on 04/21/2020 2. Continue your novolog as follows -- * goal range of 100-130 * correction factor of 25 * carbohydrate ratio 1:6 (1 unit of novolog for every 6 grams of carbohydrates consumed) 3. take phosphorus supplement 1 tablet 4 times a day for 3 days; start today. Prescription sent to [facility]. 4. check your blood sugars before meals and at bedtime. 5. follow-up with [facility] endocrinology within 1-2 weeks, then your motorcycle deliverer upon return to [place] later in the summer. 6. I will call you with your COVID-19 blood test results. 7. You are at higher risk of COVID-19 infection because of your diabetes. PLEASE wear a mask at all times when outside your home and please socially distance as best as you can. Avoid travel outside of [place]. Avoid areas of the [facility] where there are high numbers of COVID cases. If you develop fever, cough, shortness of breath, loss of taste or smell, nausea, vomiting, diarrhea, runny nose, headache, body aches - please get tested right away for COVID. Return to [facility] if - * you have fevers over 100.4 degrees * you have high blood sugars or any concern of DKA * you have persistently low blood sugars * you have any symptoms of COVID as listed above * any other concerns Pending Studies at Discharge: Yes Studies:: COVID-19 antibody test Stand-Alone Forms: [facility], Smoking Cessation Medications and DC Order Prescriptions: New Phospha 250 Neutral 250 mg Tablet 1 tab PO QID 3 Days Qty: 12 RF: 0 insulin aspart U-100 [Novolog Flexpen U-100 Insulin] 100 unit/mL (3 mL) Insulin Pen 0 unit SC ACHS Qty: 1 RF: 2 Continued Control 1 tab PO DAILY RF: 0 simvastatin 20 mg Tablet 20 mg PO DAILY RF: 0 Changed insulin lispro [Humalog KwikPen Insulin] 100 unit/mL Insulin Pen 40 unit SUBCUT DAILY Qty: 1 RF: 2 Discharge Orders: Discharge Order (Routine); Ordered 04/20/20 Ordered By: Allen Pagan/Other Patient Handouts: Diabetes: Sick-Day Plan, Diabetic Ketoacidosis Admission Data Admit Date/Time: 04/18/20 13:50 Attending Provider: Allen Ahmadi Admit Provider: Sushant Delaney Primary Care Provider: PCP,NO Other Providers: Sushant Delaney Other Interventions: Discharge Summary Assessment (RN) Last Done: 04/20/20 10:07 DC Date/Time DO NOT enter until pt leaves facility: 04/20/20 10:27 Coding Level of Care Code D/C Day Management >30 mins Diagnoses DKA (diabetic ketoacidoses) E10.10 Diabetes mellitus complication detail: without coma Diabetes mellitus type: type 1 Uncontrolled type 1 diabetes mellitus E10.65 Hyperlipidemia E78.2 Hyperlipidemia type: mixed hyperlipidemia Hypophosphatemia E83.39 Hypokalemia E87.6 Subjective fever R50.9
[2020-04-20] MEDS: INSULIN ASPART 100 UNITS/ML 3 ML PEN SC SCH (09:23)
[2020-04-20] MEDS: POT PHOSPHATE MONOBASIC W/ SOD TAB PO SCH (09:25)
[2020-04-20] MEDS: SIMVASTATIN 20 MG TAB PO SCH (09:25)
[2020-04-20] MEDS ORDERED: INSULIN GLARGINE SOLOSTAR 100 UNITS/ML 3 ML PEN SC ONE (09:45)
[2020-04-26 07:00] LABS: CoV2 Total Antibody Negative (Negative)
== END 2020-04-20 10:27 | disposition home or self-care (01) | DRG 639 ==
LOC: ED 09:45 → SUATTDRO 13:50 → 2S 13:50 → 3N 04-19 16:50